=== PATIENT | female | born 1950 | race Caucasian/White ===

== ENCOUNTER 2016-10-18 05:02 | Inpatient (IN) | payer OTHER ==
[2016-10-05 09:13] LABS: URINE BILIRUBIN NEGATIVE (Negative); URINE BLOOD 1+ (Negative); URINE COLOR YELLOW; URINE GLUCOSE-RANDOM* NEGATIVE (Negative); URINE KETONES NEGATIVE (Negative); URINE LEUKOCYTES-REFLEX NEGATIVE (Negative); URINE PROTEIN (DIPSTICK) NEGATIVE (Negative); URINE SPECIFIC GRAVITY 1.015 (1.003-1.035); URINE UROBILINOGEN 0.2 E.U./dl (0.2-1.0)
[2016-10-05 09:20] LABS: CASTS None Seen /LPF (None Seen); CRYSTALS None Seen /LPF (None Seen); SQUAMOUS >10 Many /LPF (0-3)
[2016-10-05 09:21] LABS: URINE RBC 3-10 Few /HPF (0-2); URINE WBC-REFLEX 0-5 Rare /HPF (0-5)
[2016-10-05 09:22] LABS: PROTIME 10.2 Seconds (9.3-11.4)
[2016-10-18] VITALS (8 sets, daily range): BP systolic 89–138; BP diastolic 51–57
[~2016-10-18] VITALS: Ht 157.5 cm; Wt 78.9 kg
--- NOTE | ~2016-10-18 | H ---
[facility] [place] [address] HISTORY AND PHYSICAL Name: RHONDA SÁNCHEZ Room #: 547-P DIS IN M.R.#: [id number] Admission: 10/18/16 Attend Phys: Juan Carlos Medina MD Discharge: 10/21/16 Date of : 50 Report #: [id number] THIS REPORT FOR: //name// For History and Physical, please see office documentation/handwritten note in the patient's medical record. <ELECTRONICALLY SIGNED> By: Juan Carlos Medina MD 10/26/16 0945 1503 Juan Carlos Medina MD /
--- NOTE | ~2016-10-18 | O ---
[facility] [place] [address] [address] [place] [address] OPERATIVE REPORT Name: RHONDA SÁNCHEZ Room #: 547-P [facility] IN M.R.#: [id number] Admission: 10/18/16 Attend Phys: Juan Carlos Medina MD Discharge: 10/21/16 Date of : 50 Report #: [id number] THIS REPORT FOR: //name// CC: Nima Medina DATE OF SERVICE: 10/18/2016 PREOPERATIVE DIAGNOSIS: End-stage degenerative arthritis, right knee with varus malalignment. POSTOPERATIVE DIAGNOSIS: End-stage degenerative arthritis, right knee with varus malalignment. PROCEDURE: Right total knee arthroplasty. SURGEON: Juan Carlos Medina MD. INDICATIONS: This still active 66-year-old female, has had problems with progressive degenerative arthritis in multiple areas. She underwent previous left knee replacement and previous lumbar decompression for spinal stenosis. Now, she has progressive right knee pain with varus malalignment and mild instability. We have elected to go ahead with total knee arthroplasty. DESCRIPTION OF PROCEDURE: The patient was taken to the operating room, where she was placed under general anesthesia. Prophylactic intravenous antibiotics were administered. The right knee and leg were meticulously prepped and draped. The tourniquet was inflated to 300 mmHg. An anterior longitudinal skin incision was made and carried through the medial retinaculum. The patella was reflected laterally. Rather marked degenerative changes in all 3 compartments was noted. The Gini PFC knee system was utilized. Intramedullary guides were used on both the femur, and the tibia. The femur was cut in 5 degrees valgus, and the tibia cut perpendicular to the long axis of the bone. Sufficient bone was resected to allow correction of the preoperative varus malalignment. The patellar surface was resected using a patellar guide. The femur was best suited for a size 2 femoral component. The tibia was also best suited for a size 2 tibial component. The patella was best suited for a size 32 mm patellar button appropriate anchor holes were created. The intramedullary canal was blocked with bone blocks. Methyl methacrylate cement was mixed and injected into the porous surface of the tibia. The [employer] PFC size 2 tibial component was impacted into the tibia. It seated nicely and appeared to be secure. Excess cement was removed from around its margin. The trial reduction had been most appropriate and most stable when using a 12.5 mm polyethylene insert. The permanent 12.5 insert was selected, and this was snapped into the size 2 tibial component. It seated nicely and appeared to be secure. The size 2 press fit noncemented right femoral component was then inserted. This was impacted on to the distal femur. [address] [address] OPERATIVE REPORT Name: RHONDA SÁNCHEZ Room #: 547-P [facility] IN M.R.#: [id number] Admission: 10/18/16 Attend Phys: Juan Carlos Medina MD Discharge: 10/21/16 Date of : 50 Report #: [id number] It seated nicely and appeared to be secure. The size 32 mm patellar button seated nicely, and it was also secure. Once the cement had hardened, and all excess cement was removed from around the margin, range of motion, alignment, and stability were assessed, and felt to be quite satisfactory. The knee demonstrated full knee extension and flexion back to about 135 degrees with good stability. The patella seemed to track nicely. A single Hemovac was left in the wound exiting through a separate stab incision. The tourniquet was deflated after a total tourniquet time of 40 minutes. The fascia was then closed with multiple #1 Vicryl sutures. The subcutaneous tissues were closed with 0 Monocryl. The skin was closed with skin zackary. A sterile dressing was applied. The patient was awakened and returned to the recovery room in good condition. <ELECTRONICALLY SIGNED> By: Juan Carlos Medina MD 10/26/16 0945 [id number] Juan Carlos Medina MD /nt
[~2016-10-18 05:02] MED LIST: CENTRUM SILVER1 EAC4 PO; COZAAR 50 MG TA50 M2 PO; DETROL2 M1 PO; IBUPROFEN 200200 M1 PO; NORVASC5 MG PO; PRAVACHOL40 MG PO; SYNTHROID75 MCG PO
[2016-10-19 04:05] VITALS: BP 118/50
[2016-10-19 05:46] LABS: HEMOGLOBIN 10.1 gm/dL (12.0-15.0); MCH 30.1 pg (26.0-34.0); MCHC 34.7 % (28.0-37.0); MCV 86.6 fL (80.0-100.0); RBC 3.35 mil/uL (4.20-5.00); RDW 13.4 % (10.5-14.5); WBC 10.2 thou/uL (4.0-11.0)
[2016-10-19 08:09] VITALS: BP 130/50
[2016-10-19 15:58] VITALS: BP 151/55
[2016-10-19 16:14] VITALS: BP 151/55
[2016-10-19 20:13] VITALS: BP 125/52
[2016-10-20 04:00] VITALS: BP 131/77
[2016-10-20 06:17] LABS: HEMATOCRIT 23.1 % (37.0-47.0); HEMOGLOBIN 8.2 gm/dL (12.0-15.0); MCHC 35.6 % (28.0-37.0); MCV 84.4 fL (80.0-100.0); RBC 2.73 mil/uL (4.20-5.00); RDW 13.2 % (10.5-14.5); WBC 8.6 thou/uL (4.0-11.0)
[2016-10-20 08:37] VITALS: BP 120/73
[2016-10-20 17:44] VITALS: BP 132/49
[2016-10-20 20:00] VITALS: BP 117/45
[2016-10-21 04:00] VITALS: BP 122/61
[2016-10-21 04:25] LABS: HEMATOCRIT 22.7 % (37.0-47.0); HEMOGLOBIN 7.8 gm/dL (12.0-15.0); MCH 29.6 pg (26.0-34.0); MCHC 34.2 % (28.0-37.0); MCV 86.6 fL (80.0-100.0); RBC 2.62 mil/uL (4.20-5.00); RDW 13.2 % (10.5-14.5); WBC 7.3 thou/uL (4.0-11.0)
[2016-10-21 08:18] VITALS: BP 143/63
== END 2016-10-21 13:33 | disposition home health service (06) | DRG 470 ==
LOC: 5S 05:02 → TBA 05:02 → PRE 09:20 → 5S 13:22
PROVIDERS: Orthopaedic Surgery
PROC: 0SRC0J9 Replacement of Right Knee Joint with Synthetic Substitute, Cemented, Open Approach (ICD-10-PCS; principal; 2016-10-18)
DX: M17.11 Unilateral primary osteoarthritis, right knee (principal); I10 Essential (primary) hypertension; E78.5 Hyperlipidemia, unspecified; Z96.652 Presence of left artificial knee joint; M48.06 Spinal stenosis, lumbar region; M51.36 Other intervertebral disc degeneration, lumbar region; M54.16 Radiculopathy, lumbar region; Z90.710 Acquired absence of both cervix and uterus; Z90.722 Acquired absence of ovaries, bilateral; Z82.49 Family history of ischemic heart disease and other diseases of the circulatory system; Z82.61 Family history of arthritis
CPT/HCPCS: 10785; 50010; 50101; 50415; 50954; 51130; 51225; 51412; 51771; 53000; 53364; 56525; 62110; 62900; 70005